=== PATIENT | male | born 1985 | race Caucasian/White ===

== ENCOUNTER 2017-02-03 18:23 | Emergency (ER) | payer OTHER ==
[2017-02-03 18:27] VITALS: BMI 30.4
[2017-02-03 18:29] VITALS: BP 145/88
--- NOTE | 2017-02-03 19:12 | DR.EXTPAIN ---
HPI - Time seen Time seen: 19:08 - PCP Primary Care Physician: NFD - Complaint/Symptoms Chief Complaint Doctor Comments: Spouse stated that patient injured his right foot three weeks ago with a heavy metal compress. Chief Complaint:: PT C/O SWELLING TO HIS RIGHT FOOT AND PAIN THAT GOES UP TO HIS KNEE".. Self Treatment fo Chief Complaint: MOTRIN - Source History Provided: Patient - Mode of arrival Mode of Arrival: Ambulatory - Timing Onset of Chief Complaint: 02/01/17 - Context History of: None - Associated signs and symptoms Associated Signs and Symptoms: None PMH - PMH Past Medical History: No Past Surgical History: Yes Past Surgical History Comment: 2 CYST REMOVED FROM BREASTS. - Family History History of Family Medical Conditions: No - Social History Does patient currently use any type of tobacco product: Yes Have you used tobacco products in the last 12 months: Yes Type of Tobacco Use: Cigarettes How many years tobacco product used: 6 Does any household member use tobacco: No Alcohol Use: None Do you use any recreational Drugs:: No Lives With: Spouse, Family Lives Where: Home - infectious screening In the last 2 months have you had wt loss of >10#?: NO Have you had fever, night sweats or hemotysis?: No Have you traveled outside the country in the last 6 months?: No Isolation: Standard ROS - Review of Systems Eyes: No Symptoms Reported ENTM: No Symptoms Reported Respiratoy: No Symptoms Reported Cardiovascular: No Symptoms Reported Gastrointestinal/Abdominal: No Symptoms Reported Genitourinary: No Symptoms Reported Neurological: No Symptoms Reported Musculoskeletal: No Symptoms Reported Hematologic/Lymphatic: No Symptoms Reported Endocrine: No Symptoms Reported Psychiatric: No Symptoms Reported All Other Systems: Reviewed and Negative PE - Vital Signs Vitals: Pulse Rate 99 Respiratory Rate 20 Blood Pressure 145/88 O2 Sat by Pulse Oximetry 96 - General General Appearance: Alert - Head Head Exam: Normal Inspection, Atraumatic - Eyes Eye exam: Normal Appearance, PERRL, EOMI - ENT ENT Exam: Normal Exam - Neck Neck Exam: Normal Inspection, Full ROM - Chest Chest Inspection: Normal Inspection - Respiratory Respiratory Exam: Normal Lung Sounds Bilat Respiratory Exam: Bilateral Clear to Auscultation - Cardiovascular Cardiovascular Exam: Regular Rate - Abdominal Exam Abdominal Exam: Normal Inspection Abdominal Tenderness: negative: RUQ, RLQ, LUQ, LLQ, Epigastrium, Suprapubic, Diffuse, Mild, Moderate, Severe, Other - Extremities Extremities Exam: Normal Inspection, Full ROM - Upper Extremities Shoulder Exam: Normal Inspection, Full ROM Arm Exam: Normal Inspection Elbow Exam: Normal Inspection Forearm Exam: Normal Inspection Hand Exam: Normal Inspection Neuromotor Exam: Normal Exam Neurosensory Exam: Normal Exam Hand Tendon Exam: Flexor Digitorium Profundus (Location) - Lower Extremities Hip/Pelvis Exam: Normal Inspection, Full ROM Upper Leg Exam: Normal Inspection Knee Exam: Normal Inspection, Full ROM Lower Leg Exam: Normal Inspection Ankle Exam: Normal Inspection Foot/Toe Exam: Tenderness, Swelling (right) Neurovascular/Tendon Exam: Normal Capillary Refill Gait Exam: Observed and Normal - Back Back Exam: Normal Inspection - Neurological Neurological Exam: Alert, Oriented X3, CN II-XII Intact - Psychiatric Psychiatric Exam: Normal Affect - Skin Skin Exam: Warm, Dry, Intact Type of Lesion: Rash ROR - Labs Reviewed Result Diagrams: 02/03/17 19:29 Laboratory: WBC 15.5 X10^3/uL (3.6-10.0) H 02/03/17 19:29 RBC 5.14 X10^6/uL (4.7-6.0) 02/03/17 19:29 Hgb 15.8 g/dL (13.5-18.0) 02/03/17 19:29 Hct 46.7 % (42.0-54.0) 02/03/17 19:29 MCV 90.9 fL (80.0-100.0) 02/03/17 19:29 MCH 30.7 pg (27.0-34.0) 02/03/17 19: MCHC 33.8 g/dL (33.0-35.0) 02/03/17 19:29 RDW 13.2 % (11.6-16.5) 02/03/17 19:29 Plt Count 313 X10^3/uL (150.0-450.0) 02/03/17 19:29 MPV 8.4 fL (7.4-11.0) 02/03/17 19: Neut % 67.0 % (42.0-75.0) 02/03/17 19: Lymph % 24.3 % (21.0-51.0) 02/03/17 19: Coffee % 7.7 % (0.0-13.0) 02/03/17 19:29 Eos % 0.6 % (0.9-2.9) L 02/03/17 19:29 Baso % 0.4 % (0.2-1.0) 02/03/17 19:29 Neut # 10.4 x10^3/uL (2.2-4.8) H 02/03/17 19:29 Lymph # 3.8 X10^3/uL (1.3-2.9) H 02/03/17 19:29 Coffee # 1.2 x10^3/uL (0.3-0.8) H 02/03/17 19:29 Eos # 0.1 x10^3/uL (0.0-0.2) 02/03/17 19:29 Baso # 0.1 X10^3/uL (0.0-0.1) 02/03/17 19:29 Absolute Nucleated RBC 0.1 /100WBC 02/03/17 19:29 - XRAY XRAY Interpreted by: Radiologist (Foot (Rt): X ray-No significant abnormality ) - Diagnosis Discharge Problem: Contusion of foot, right Qualifiers: Encounter type: initial encounter Qualified Code(s): S90.31XA - Contusion of right foot, initial encounter - Discharge Plan Condition: Stable - Follow ups/Referrals Follow ups/Referrals: NFD,None [Primary Care Provider] - 3 days - Instructions
[2017-02-03] MEDS ORDERED: TORADOL 60 MG VIAL IM ONE (19:17)
[2017-02-03] MEDS ORDERED: TORADOL 60 MG VIAL ONE (19:24)
[2017-02-03 19:38] LABS: BASOPHILS # (AUTO) 0.1 X10^3/uL (0.0-0.1); BASOPHILS % (AUTO) 0.4 % (0.2-1.0); EOSINOPHILS # (AUTO) 0.1 x10^3/uL (0.0-0.2); EOSINOPHILS % (AUTO) 0.6 % (0.9-2.9); HEMATOCRIT 46.7 % (42.0-54.0); HEMOGLOBIN 15.8 g/dL (13.5-18.0); LYMPHOCYTES # (AUTO) 3.8 X10^3/uL (1.3-2.9); LYMPHOCYTES % (AUTO) 24.3 % (21.0-51.0); MEAN CORPUSCULAR HEMOGLOBIN 30.7 pg (27.0-34.0); MEAN CORPUSCULAR HGB CONC 33.8 g/dL (33.0-35.0); MEAN CORPUSCULAR VOLUME 90.9 fL (80.0-100.0); MEAN PLATELET VOLUME 8.4 fL (7.4-11.0); MONOCYTES # (AUTO) 1.2 x10^3/uL (0.3-0.8); MONOCYTES % (AUTO) 7.7 % (0.0-13.0); NEUTROPHILS # (AUTO) 10.4 x10^3/uL (2.2-4.8); PLATELET COUNT 313 X10^3/uL (150.0-450.0); RED BLOOD COUNT 5.14 X10^6/uL (4.7-6.0); RED CELL DISTRIBUTION WIDTH 13.2 % (11.6-16.5); WHITE BLOOD COUNT 15.5 X10^3/uL (3.6-10.0)
--- NOTE | 2017-02-03 19:38 | RAD ---
Right foot, three views Indication: Right foot pain and swelling Findings: No acute cortical disruption or malalignment is identified. The joint spaces are grossly i ntact. Multipartite medial great toe hallux sesamoid is incidentally noted. Also there is small acce ssory ossicle along the dorsal aspect of the talonavicular joint. No significant soft tissue abnorma lity. Impression: No significant abnormality. Reported By:
== END 2017-02-03 20:19 | disposition home or self-care (01) ==
LOC: ER 18:41
DX: S90.31XA Contusion of right foot, initial encounter (principal); X58.XXXA Exposure to other specified factors, initial encounter; Y92.9 Unspecified place or not applicable
CPT/HCPCS: 36415; 73630; 85025; 96372; 99283; J1885